=== PATIENT | female | born 1995 | race Caucasian/White ===

== ENCOUNTER 2020-04-07 09:31 | Observation (INO) | payer SELFPAY ==
[~2020-04-07] VITALS: Ht 172.7 cm; Wt 78.5 kg
[2020-04-07] MEDS ORDERED: PNV91TAB8 PO (10:51)
[2020-04-07 12:03] VITALS: BP 127/81
== END 2020-04-07 11:35 | disposition home or self-care (01) ==
LOC: MFCC 09:31
PROVIDERS: ADMIT Obstetrics & Gynecology; ATTEND Obstetrics & Gynecology
DX: O62.9 Abnormality of forces of labor, unspecified (principal); Z3A.38 38 weeks gestation of pregnancy
CPT/HCPCS: 76815; G0378; Q0092

== ENCOUNTER 2020-04-08 01:51 | Inpatient (IN) | payer SELFPAY ==
[~2020-04-08] VITALS: Ht 167.6 cm; Wt 78.9 kg
[~2020-04-08 01:51] MED LIST: PNV91TAB8 PO
[2020-04-08] MEDS: LACTATED RINGERS 1,000 ML IV SCH ×2 (02:25→12:59)
[2020-04-08] MEDS ORDERED: CARBOPROST 250 MCG/ML AMP IM PRN (02:25)
[2020-04-08] MEDS ORDERED: METHYLERGONOVINE 0.2 MG/ML AMP IM PRN ×2 (02:25→12:55)
[2020-04-08] MEDS ORDERED: OXYTOCIN 10 UNITS/ML VIAL IM SCH (02:25)
[2020-04-08] MEDS ORDERED: LACTATED RINGERS 500 ML IV ONE (02:25)
[2020-04-08] MEDS ORDERED: MORPHINE SULFATE 2 MG/ML SYR IVP PRN (02:35)
[2020-04-08] MEDS ORDERED: ONDANSETRON 4 MG/2 ML VIAL IVP PRN (02:35)
[2020-04-08 03:06] LABS: BASOPHILS % (AUTO) 0.3 % (0.0-2.0); EOSINOPHILS % (AUTO) 0.2 % (0.0-4.0); LYMPHOCYTES # (AUTO) 3.2 K/uL (2.5-16.5); LYMPHOCYTES % (AUTO) 19.6 % (20.5-51.1); MEAN CORPUSCULAR HEMOGLOBIN 25 pg (27-31); MEAN CORPUSCULAR HGB CONC 32 g/dL (33-37); MONOCYTES # (AUTO) 0.9 K/uL (0.8-1.0); MONOCYTES % (AUTO) 5.3 % (1.7-9.3); NEUTROPHILS # (AUTO) 12.2 K/uL (1.8-7.7); NEUTROPHILS % (AUTO) 74.6 % (42.2-75.2); PLATELET COUNT (AUTO) 346 K/uL (140-450); RED BLOOD CELL COUNT(AUTO) 4.47 MIL/uL (4.20-5.40); RED CELL DISTRIBUTION WIDTH 16.9 % (11.6-13.7); WHITE BLOOD COUNT (AUTO) 16.4 K/uL (4.8-10.8)
[2020-04-08 03:16] LABS: ANION GAP 19.9 (8-16); CREATININE 0.6 mg/dL (0.6-1.3); POTASSIUM 3.9 mmol/L (3.5-5.1)
[2020-04-08 03:22] LABS: ALBUMIN 2.9 g/dL (3.4-5.0); TOTAL BILIRUBIN 0.2 mg/dL (0.0-1.0)
[2020-04-08] MEDS ORDERED: AMPICILLIN 2,000 MG VIAL ONE (03:43)
[2020-04-08 03:51] LABS: APPEARANCE,URINE CLEAR (CLEAR); BILIRUBIN,URINE NEGATIVE (NEGATIVE); BLOOD, URINE NEGATIVE (NEGATIVE); COLOR,URINE YELLOW (YELLOW); LEUKOCYTE ESTERASE ,URINE NEGATIVE (NEGATIVE); NITRITE, URINE NEGATIVE (NEGATIVE); UGLUCOSE NEGATIVE (NEGATIVE)
[2020-04-08] MEDS: AMPICILLIN 2,000 MG in NACL 0.9% 100 ML IV SCH ×2 (03:51→03:55)
[2020-04-08] MEDS ORDERED: OXYTOCIN 20 UNITS in LACTATED RINGERS 1,000 ML IV SCH (04:05)
[2020-04-08] MEDS ORDERED: fentaNYL citrate 0.05 MG/ML VIAL ONE (04:27)
[2020-04-08] MEDS ORDERED: ROPIVACAINE 0.2%/NS PREMIX 200 ML EPI ONE (04:28)
[2020-04-08 06:02] VITALS: BP 136/85
--- NOTE | 2020-04-08 06:23 | NUR ---
PATIENT HAS BEEN SCREENED AND CATEGORIZED LOW NUTRITION RISK. PATIENT WILL BE SEEN WITHIN 7 DAYS OF ADMISSION. 04/16/20 RAMAKRISHNA KIRKLAND MS, RDN
[2020-04-08] MEDS ORDERED: AMPICILLIN 1,000 MG VIAL ONE ×2 (07:22→11:30)
[2020-04-08] MEDS: AMPICILLIN 1,000 MG in NACL 0.9% 50 ML IV SCH ×2 (07:43→11:34)
[2020-04-08] MEDS ORDERED: OXYTOCIN 20 UNITS/LR PREMIX 1,000 ML IV ONE (08:16)
[2020-04-08] MEDS ORDERED: ACETAMINOPHEN 325 MG TAB ONE (08:39)
[2020-04-08] MEDS ORDERED: ACETAMINOPHEN 325 MG TAB PO PRN (08:40)
[2020-04-08] MEDS ORDERED: OXYTOCIN 10 UNITS/ML VIAL IM PRN (12:55)
[2020-04-08] MEDS ORDERED: METHYLERGONOVINE 0.2 MG TAB PO PRN (12:55)
[2020-04-08] MEDS ORDERED: TEMAZEPAM 15 MG CAP PO PRN (12:55)
[2020-04-08] MEDS ORDERED: SODIUM PHOSPHATE 118 ML ENEM RC PRN (12:55)
[2020-04-08] MEDS ORDERED: HYDROcodone/APAP 5/325 MG 1 TAB TAB PO PRN (12:55)
[2020-04-08] MEDS ORDERED: oxyCODONE/APAP 5/325 MG 1 TAB TAB PO PRN (12:55)
[2020-04-08] MEDS ORDERED: BENZOCAINE/MENTHOL 20%-0.5% 60 GM CAN TP PRN (12:55)
[2020-04-08] MEDS ORDERED: DOCUSATE SOD/SENNA 50/8.6 MG 1 TAB PO SCH (21:00)
[2020-04-09 05:04] LABS: HEMATOCRIT 33.4 % (36-48); HEMOGLOBIN 10.9 g/dL (12.0-16.0)
[2020-04-09] MEDS ORDERED: FERR325E14 PO (11:33)
[2020-04-09] MEDS ORDERED: IBUP-2213 PO (11:33)
== END 2020-04-09 18:40 | disposition home or self-care (01) | DRG 807 ==
LOC: MLD 01:51 → OBSVTOIN 02:24 → MLD 02:32 → MFCC 16:20
PROVIDERS: ADMIT Obstetrics & Gynecology; ATTEND Obstetrics & Gynecology
PROC: 10D07Z6 Extraction of Products of Conception, Vacuum, Via Natural or Artificial Opening (ICD-10-PCS; principal; 2020-04-08)
PROC: 0W8NXZZ Division of Female Perineum, External Approach (ICD-10-PCS; 2020-04-08)
DX: O76 Abnormality in fetal heart rate and rhythm complicating labor and delivery (principal); Z37.0 Single live birth; Z3A.39 39 weeks gestation of pregnancy; Z20.828 Contact with and (suspected) exposure to other viral communicable diseases
CPT/HCPCS: 36415; 80053; 81003; 85018; 85025; 86592; 86886; 86900; 86901; G0378; J0290; J2590; J2795; J3010; J7120; U0003